=== PATIENT | male | born 1985 | race Caucasian/White ===

== ENCOUNTER 2020-11-30 17:06 | Emergency (ER) | payer OTHER ==
[~2020-11-30] VITALS: Ht 180.3 cm; Wt 60.3 kg
[2020-11-30 17:33] VITALS: BP_SYST 117
[2020-12-01 18:10] VITALS: BP_SYST 117
== END 2020-11-30 18:10 ==
LOC: SED 17:06
DX: G89.18 Other acute postprocedural pain (principal); M25.571 Pain in right ankle and joints of right foot
CPT/HCPCS: 99283